=== PATIENT | female | born 1970 | race Hispanic/Latino ===

== ENCOUNTER 2023-12-18 09:26 | Outpatient (CLI) | payer OTHER | END 2023-12-18 09:27 | disposition home or self-care (01) | LOC: MADRAD 09:26 | PROVIDERS: ATTEND Internal Medicine | DX: M79.605 Pain in left leg (principal); S72.112K Displaced fracture of greater trochanter of left femur, subsequent encounter for closed fracture with nonunion ==

== ENCOUNTER 2025-03-01 12:04 | Outpatient (CLI) | payer OTHER | END 2025-03-01 12:05 | disposition home or self-care (01) | LOC: MADRAD 12:04 | PROVIDERS: ATTEND Nurse Practitioner Family | DX: M25.511 Pain in right shoulder (principal) ==